=== PATIENT | male | born 1975 | race Caucasian/White ===

== ENCOUNTER 2024-04-27 13:19 | Emergency (ER) | payer OTHER, SELFPAY ==
[2024-04-27 13:21] VITALS: BP 105/74
--- NOTE | 2024-04-27 14:20 | ED.GENMED ---
History of Present Illness
<Iris Barroso PA-C - Last Filed: 04/27/24 17:58>
General
Chief Complaint: Abdominal Pain
Source: patient
Exam Limitations: none
Time Seen by Provider: 04/27/24 13:48
Nursing documentation reviewed up to this point in time: agreed with
History of Present Illness
History of Present Illness:
Patient is a 49-year-old male with history hypertension, type 2 diabetes presenting to the emergency department for evaluation of abdominal pain. Patient states symptoms initially started yesterday evening prior to bed and he noticed a dull pain in
the right side of his abdomen. This morning he woke up and said the pain was very severe and describes it as a constant 10/10 pain in his right mid abdomen with some radiation around to his back. Patient does report some nausea when the pain was
severe. No association with eating. However�patient does report that he has had no appetite today and has not eaten. Patient denies any fever, chills, vomiting, diarrhea, constipation.
Patient denies any history of abdominal surgeries.
Patient did take some Tylenol prior to coming emergency department states pain has decreased in intensity.
Past History
<Iris Barroso PA-C - Last Filed: 04/27/24 17:58>
Past History
ED Past Medical History: HTN, NIDDM and Other (Obesity)
ED Past Surgical History: None
Social History
Tobacco: Non-smoker
Alcohol: None
Personal:
Living: with family
Employment: Employed
Family History
Family History: Diabetes and Hypertension
Review of Systems
<Iris Barroso PA-C - Last Filed: 04/27/24 17:58>
Review of Systems
Allergies reviewed?: Yes
All Other Systems: ROS reviewed and negative except as documented in HPI and ROS
Phy Exam
<Iris Barroso PA-C - Last Filed: 04/27/24 17:58>
Physical Exam
Physical Exam:
Vitals: Patient's vital signs are stable. Afebrile
General: Patient is well appearing, no acute distress. Nontoxic-appearing
Skin: Warm and dry, no rashes or lesions
Head: Normocephalic, atraumatic
Eyes: Sclera nonicteric. EOMs intact. No nystagmus.
Throat: Protecting airway
Neck: Normal ROM, no cervical spine tenderness, no meningismus
Cardiac: Regular rate and rhythm, no murmurs.
Pulm: Normal respiratory effort, no wheezes, rales, rhonchi heard on exam.
Abdomen: Abdomen soft. Mild to moderate abdominal tenderness in right mid abdomen without any rebound tenderness or guarding. No CVA tenderness bilaterally
Extremities: No evidence of cyanosis or edema. Great distal pulses
Neuro: AAOx3. CN II-XII intact. No focal neurologic deficits.
Psychiatric: Normal affect.
Course
<Iris Barroso PA-C - Last Filed: 04/27/24 17:58>
Orders/Labs/Results
Orders:
Orders
04/27/24 14:17
0.9% Sodium Chloride 1000 ml [Nss] 1,000 ml IV BOLUS
Ketorolac [Toradol] 15 mg IV NOW STA
04/27/24 14:20
CT Abd/Pel (IV only)-[facility] only Urgent
Comment:
Reason For Exam: Right sided abdominal pain
04/27/24 14:26
Complete Blood Count/With Diff Urgent
Comprehensive Metabolic Panel Urgent
Lipase Urgent
04/27/24 14:27
Urinalysis Reflex To Culture Urgent
Date Specimen was Collected: 04/27/24
Time Specimen was Collected: 14:27
Urine Microscopic Reflex Cult Urgent
Urine Culture Urgent
PRAKASH Source: U
Specimen Description:
Date Specimen was Collected: 04/27/24
Time Specimen was Collected: 14:27
Abnormal Lab Results
04/27/24 04/27/24
14:26 14:27
WBC 11.3 H 10^3/uL
(4.8-10.8)
RBC 4.68 L 10^6/uL
(4.70-6.10)
Hct 38.2 L %
(39.0-52.0)
Abs Immat Gran (auto) 0.1 H 10^3/uL
(0-0.05)
Absolute Neuts (auto) 7.8 H 10^3/uL
(1.4-6.5)
Absolute Monos (auto) 0.8 H 10^3/uL
(0.1-0.6)
Glucose 118 H mg/dl
(70-99)
Urine Ketones 1+ A
(Negative)
Ur Occult Blood Reflex 4+ A
(Negative)
Urine Bilirubin 1+ A
(Negative)
Leukocyte Esterase Rfl Trace A
(Negative)
Urine RBC 80-90 A /HPF
(0-2)
Urine Bacteria (Reflex) Moderate A
(Negative)
04/27/24 14:26
04/27/24 14:26
Vital Signs
Initial and Last Documented VS:
Initial Vital Signs
Temp Pulse Resp BP Pulse Ox
98.6 F 73 20 105/74 99
04/27/24 13:21 04/27/24 13:21 04/27/24 13:21 04/27/24 13:21 04/27/24 13:21
Last Documented Vital Signs
Temp Pulse Resp BP Pulse Ox
97.9 F 65 20 151/81 95
04/27/24 17:49 04/27/24 17:49 04/27/24 17:49 04/27/24 17:49 04/27/24 17:49
<Melvin Fuentes, DO - Last Filed: 04/27/24 20:12>
Orders/Labs/Results
Orders:
Orders
04/27/24 14:17
0.9% Sodium Chloride 1000 ml [Nss] 1,000 ml IV BOLUS
Ketorolac [Toradol] 15 mg IV NOW STA
04/27/24 14:20
CT Abd/Pel (IV only)-[facility] only Urgent
Comment:
Reason For Exam: Right sided abdominal pain
04/27/24 14:26
Complete Blood Count/With Diff Urgent
Comprehensive Metabolic Panel Urgent
Lipase Urgent
04/27/24 14:27
Urinalysis Reflex To Culture Urgent
Date Specimen was Collected: 04/27/24
Time Specimen was Collected: 14:27
Urine Microscopic Reflex Cult Urgent
Urine Culture Urgent
PRAKASH Source: U
Specimen Description:
Date Specimen was Collected: 04/27/24
Time Specimen was Collected: 14:27
Abnormal Lab Results
04/27/24 04/27/24
14:26 14:27
WBC 11.3 H 10^3/uL
(4.8-10.8)
RBC 4.68 L 10^6/uL
(4.70-6.10)
Hct 38.2 L %
(39.0-52.0)
Abs Immat Gran (auto) 0.1 H 10^3/uL
(0-0.05)
Absolute Neuts (auto) 7.8 H 10^3/uL
(1.4-6.5)
Absolute Monos (auto) 0.8 H 10^3/uL
(0.1-0.6)
Glucose 118 H mg/dl
(70-99)
Urine Ketones 1+ A
(Negative)
Ur Occult Blood Reflex 4+ A
(Negative)
Urine Bilirubin 1+ A
(Negative)
Leukocyte Esterase Rfl Trace A
(Negative)
Urine RBC 80-90 A /HPF
(0-2)
Urine Bacteria (Reflex) Moderate A
(Negative)
04/27/24 14:26
04/27/24 14:26
Vital Signs
Initial and Last Documented VS:
Initial Vital Signs
Temp Pulse Resp BP Pulse Ox
98.6 F 73 20 105/74 99
04/27/24 13:21 04/27/24 13:21 04/27/24 13:21 04/27/24 13:21 04/27/24 13:21
Last Documented Vital Signs
Temp Pulse Resp BP Pulse Ox
97.9 F 65 20 151/81 95
04/27/24 17:49 04/27/24 17:49 04/27/24 17:49 04/27/24 17:49 04/27/24 17:49
<Iris Barroso PA-C - Last Filed: 04/27/24 17:58>
MDM/Problems Addressed
Differential Diagnosis Includes:
Not limited to: Constipation, cholelithiasis, cholecystitis, appendicitis, kidney stone, UTI
MDM/Problems Addressed:
49-year-old male presenting with acute onset right mid abdominal pain with radiation around to right back. Onset yesterday evening with acute worsening this morning. Pain somewhat improved following Tylenol prior to arrival. Denies any associated
fever, chills, vomiting, urinary symptoms, diarrhea, or constipation. Vital stable on arrival. Afebrile. Physical exam as above. Patient relatively well-appearing on initial evaluation. Abdomen is soft although he does have mild to moderate
tenderness in right mid abdomen. No CVA tenderness. No rashes. Great distal pulses. Heart regular rate and rhythm. Lungs clear. Labs were performed which showed very mild leukocytosis with a white count of 11.3. No other clinically
significant abnormalities. Will give Toradol, fluids. Patient declines any Zofran at this time. Will check CT abdomen/pelvis
Urinalysis does show many RBCs with clinical concern of potential kidney stone. Urine did show evidence of bacteria although no WBC or nitrate�low concern for infection. Culture will be sent. CT pending.
CT scan shows 3 mm right distal ureteral stone. Patients pain has been well-controlled in the emergency department with 1 dose of Toradol. Patient nontoxic-appearing. No evidence of renal insufficiency. Patient stable for discharge with pain
management, Flomax, return precautions. Patient will follow-up with urology. Patient sent home with urine strainer.
Chronic conditions affecting care:
N/A
Acute Exacerbation and/or Progression of Chronic Illness:
N/A
<Iris Barroso PA-C - Last Filed: 04/27/24 17:58>
*Radiology
Radiology exam reviewed: preliminary read by ED provider and radiology read reviewed
*Pulse Oximetry
Patient hypoxic: no
*EKG
Interpreted by ED Provider?: NA
*Video Machines Mechanic Interpretation
Rate: Video Machines Mechanic- N/A
*Critical Care Note
Total Time (30-74mins, 75-104mins- exclusive of procedures): Not Applicable
ED Attending Note
<Iris Barroso PA-C - Last Filed: 04/27/24 17:58>
-
Portions of this chart may have been created with voice recognition software.� Occasional wrong word or��sound alike� substitutions may have occurred due to the inherent limitations of voice recognition software.
<Melvin Fuentes DO - Last Filed: 04/27/24 20:12>
ED Attending Note
Patient seen and examined by attending physician: Yes
I performed the substantive portion of visit, reviewed & personally made and approve the management plan that is documented in note by myself or YANDEL.: Yes
ED Attending Note:
49-year-old male with right-sided pain. Is a diabetic. CT does show a stone. Feels much better on reevaluation patient eating in the room. Okay for discharge and outpatient follow-up
Discharge Plan
Departure
Patient Disposition: Home (Routine Discharge)
Date of Disposition: 04/27/24
Time of Disposition: 17:40
Patient with high blood pressure during this ER visit?: No
Discharge Problem:
Right distal ureteral calculus
Instructions: Kidney Stone, Adult ED
Prescriptions:
New
ondansetron 4 mg tablet,disintegrating
4 mg PO Q8H PRN (Reason: nausea and vomiting) Qty: 10 0RF
tamsulosin [Flomax] 0.4 mg capsule
0.4 mg PO DAILY Qty: 14 0RF
oxycodone 5 mg tablet
5 mg PO Q8H PRN (Reason: Pain) Qty: 5 0RF
No Action
metformin 1,000 MG tablet
1,000 mg PO BID
losartan 25 MG tablet
25 mg PO DAILY Qty: 30 0RF
Referrals:
Sanchez Vasquez MD [Active] - Call in 1-3 days for appt
Mirella Arango MD [Family Provider] -
Activity Restrictions/Additional Instructions:
RETURN TO THE EMERGENCY DEPARTMENT WITH ANY FEVERS, CHILLS, SEVERE ABDOMINAL PAIN, INTRACTABLE NAUSEA/VOMITING, WORSENING IN CURRENT SYMPTOMS, OR ANY OTHER CONCERNS
-A few prescriptions have been sent to her pharmacy. You should take the tamsulosin daily until you passed the stone. You can take Zofran every 8 hours as needed for severe nausea. You should take 600 mg of ibuprofen every 8 hours as needed for
pain management. For severe pain�you can take oxycodone. This will cause drowsiness and you should not take prior to driving.
-You should strain your urine until the stone is passed.
-Follow-up with urology for further evaluation/management. It is important to monitor your symptoms closely and return with any signs of infection.
Interventions
Interventions:
*Risk Screen - Suicide Last Done: 04/27/24 13:21
*General Assessment Last Done: 04/27/24 13:21
*Neglect/Abuse Screening Last Done: 04/27/24 13:21
*ED COVID-19 Vaccine History Last Done: 04/27/24 14:39
*Nursing Disposition Last Done: 04/27/24 17:52
EM-Cwodhb-Etgrtsexhu Assessment Last Done: 04/27/24 14:39
Discharge Date and Time
Discharge Date/Time: 04/27/24 17:55
Print Language: GREENLANDIC
[2024-04-27] MEDS: TORADOL 15 MG IV (14:27)
[2024-04-27] MEDS: NSS 1000 IV (14:36)
[2024-04-27 14:40] LABS: Urine Albumin Trace (Neg - Trace); Urine Bilirubin 1+ (Negative); Urine Character Clear (Clear); Urine Color Yellow; Urine Glucose Negative (Negative); Urine Ketone 1+ (Negative); Urine Leukocyte Trace (Negative); Urine Nitrite Negative (Negative); Urine Occult Blood 4+ (Negative); Urine Specific Gravity 1.015 (<1.030); Urine Urobilinogen 1+ (Neg - 1+)
[2024-04-27 14:40] LABS: % Basophils 0.4 % (0-2); % Eosinophils 1.6 % (0-6); % Immature Granulocytes 0.5 % (0-0.5); % Lymphocytes 21.3 % (20.5-51.1); % Monocytes 7.3 % (1.7-9.3); % Neutrophils 68.9 % (42.2-75.2); Absolute Eosinophils 0.2 10^3/uL (0-0.7); Absolute Immature Granulocytes 0.1 10^3/uL (0-0.05); Absolute Lymphocytes 2.4 10^3/uL (1.2-3.4); Absolute Monocytes 0.8 10^3/uL (0.1-0.6); Absolute Neutrophils 7.8 10^3/uL (1.4-6.5); Hematocrit 38.2 % (39.0-52.0); Hemoglobin 13.2 g/dL (13.0-18.0); Mean Corp Hgb Conc. 34.6 g/dL (33.0-37.0); Mean Corpuscular Hgb 28.2 pg (27.0-31.0); Mean Corpuscular Volume 81.6 fL (80.0-94.0); Nucleated Red Blood Cells % 0 % (-); Platelet Count 229 10^3/uL (130-400); Red Blood Cell Count 4.68 10^6/uL (4.70-6.10); Red Cell Dist. Width 14.1 % (11.5-14.5); White Blood Cell Count 11.3 10^3/uL (4.8-10.8)
[2024-04-27 15:00] LABS: ALT (SGPT) 19 U/L (0-50); AST (SGOT) 20 U/L (17-59); Albumin 4.4 g/dl (3.5-5.0); Alkaline Phosphatase 66 U/L (38-126); Blood Urea Nitrogen 14 mg/dl (9-20); Calcium 9.4 mg/dl (8.4-10.2); Carbon Dioxide 28 mmol/L (22-30); Chloride 102 mmol/L (98-107); Glucose 118 mg/dl (70-99); Lipase 40 U/L (23-300); Potassium 4.1 mmol/L (3.5-5.1); Sodium 139 mmol/L (135-145); Total Bilirubin 0.9 mg/dl (0.2-1.3); Total Protein 7.4 g/dl (6.3-8.2); eGFR > 60.00
[2024-04-27 15:08] LABS: Urine Mucus Many; Urine Squamous Cell 0-2 /LPF (Few)
[2024-04-27 15:09] LABS: Urine Bacteria Moderate (Negative); Urine Red Blood Cell 80-90 /HPF (0-2); Urine White Cell 0-2 /HPF (0-5)
[2024-04-27 17:49] VITALS: BP 151/81
== END 2024-04-27 17:55 | disposition home or self-care (01) ==
LOC: EMR 13:19
PROVIDERS: Physician Assistant; EMERGENCY PHYSICIAN Emergency Medicine; FAMILY PHYSICIAN Family Medicine
DX: R10.9 Unspecified abdominal pain (principal); I10 Essential (primary) hypertension; E11.9 Type 2 diabetes mellitus without complications; E66.9 Obesity, unspecified; N20.1 Calculus of ureter; Z82.49 Family history of ischemic heart disease and other diseases of the circulatory system; Z83.3 Family history of diabetes mellitus
CPT/HCPCS: 99284; 74177; 80053; 81003; 81015; 83690; 85025; 87086; Q9967

== ENCOUNTER 2024-05-20 09:11 | Emergency (ER) | payer OTHER, SELFPAY ==
[2024-05-20 09:21] VITALS: BP 166/92
--- NOTE | 2024-05-20 09:45 | ED.GENMED ---
History of Present Illness
General
Chief Complaint: Abdominal Symptoms
Source: patient and records
Time Seen by Provider: 05/20/24 09:31
History of Present Illness
History of Present Illness:
49yoM with a history of hypertension, hyperlipidemia, type 2 diabetes, and morbid obesity presenting for evaluation of abdominal pain. Patient was seen in the ED on 04/27/2024 for right-sided abdominal pain and he was diagnosed with a 3 mm distal
ureteral stone. He was discharged with expectant management and referred to urology. Patient never followed up with urology because the office reportedly never called him back. He does not believe he ever passed the stone. Patient was pain-free
for several weeks and his pain recurred 2 days ago. He reports pain in the right flank and right abdomen. He also was having nausea but denies vomiting. He has been taking ibuprofen for his symptoms. No fevers or urinary symptoms.
Past History
Past History
ED Past Medical History: HTN, NIDDM and Other (Obesity)
ED Past Surgical History: None
Social History
Tobacco: Non-smoker
Alcohol: None
Personal:
Living: with family
Employment: Employed
Family History
Family History: Diabetes and Hypertension
Phy Exam
General Physical Exam
General Presentation: well appearing and no apparent distress
General age: appears stated age
General Skin: warm and dry
General Habitus: normal
General Mental: alert
Cardiovascular Exam
Cardiovascular Exam: regular rate/rhythm and no murmur
Pulmonary Exam
Pulmonary Exam: lungs clear, no respiratory distress and no crackles
Gastrointestinal Exam
Gastrointestinal Exam: soft, non distended and tender (+Mild tenderness to RUQ. Negative Bryan's sign. No CVA tenderness. No guarding or rigidity. )
Palpation: right upper quadrant: Mild tenderness
Skin Exam
Skin Exam: normal color and warm/dry
Course
Orders/Labs/Results
Orders:
Orders
05/20/24 09:41
CT Abd/pel Without Iv Or Oral Urgent
Comment:
Reason For Exam: R sided abd pain, kidney stone last month
0.9% Sodium Chloride 1000 ml [Nss] 1,000 ml IV BOLUS
HYDROmorphone [Dilaudid] 0.5 mg IV NOW STA
Ketorolac [Toradol] 15 mg IV NOW STA
Ondansetron Injectable [Zofran] 4 mg IV NOW STA
05/20/24 09:44
Complete Blood Count/With Diff Urgent
Comprehensive Metabolic Panel Urgent
Urinalysis Reflex To Culture Urgent
Date Specimen was Collected: 05/20/24
Time Specimen was Collected: :28
Urine Microscopic Reflex Cult Urgent
Abnormal Lab Results
05/20/24
09:44
WBC 11.0 H 10^3/uL
(4.8-10.8)
RBC 4.51 L 10^6/uL
(4.70-6.10)
Hct 37.5 L %
(39.0-52.0)
Abs Immat Gran (auto) 0.1 H 10^3/uL
(0-0.05)
Absolute Neuts (auto) 7.5 H 10^3/uL
(1.4-6.5)
Absolute Monos (auto) 0.9 H 10^3/uL
(0.1-0.6)
Lymphocytes % 19.2 L %
(20.5-51.1)
Glucose 152 H mg/dl
(70-99)
Leukocyte Esterase Rfl Trace A
(Negative)
05/20/24 09:44
05/20/24 09:44
Vital Signs
Initial and Last Documented VS:
Initial Vital Signs
Temp Pulse Resp BP Pulse Ox
98.1 F 69 17 166/92 97
05/20/24 09:21 05/20/24 09:21 05/20/24 09:21 05/20/24 09:21 05/20/24 09:21
Last Documented Vital Signs
Temp Pulse Resp BP Pulse Ox
98.1 F 62 16 152/95 98
05/20/24 09:21 05/20/24 12:36 05/20/24 12:36 05/20/24 12:36 05/20/24 12:36
MDM/Problems Addressed
Differential Diagnosis Includes:
49yoM here with R flank and abdominal pain x 2 days. Seen in the ED last month for a 3mm distal ureteral stone and he does not believe he ever passed the stone. No fevers or urinary symptoms. He is well appearing in no distress. There is RUQ
tenderness on abdominal exam without signs of peritonitis.
*Critical Care Note
Total Time (30-74mins, 75-104mins- exclusive of procedures): Not Applicable
Update Note
Update Note:
CT again shows a 3mm stone just distal to prior location. Renal function is stable. No signs of infection on urinalysis. Pain is controlled on reassessment. Case was discussed with urologist, Dr. Perez, who states patient may be discharged with
outpatient f/u. Supportive care discussed including hydration and urine straining. Flomax represcribed. Script for oxycodone also provided for breakthrough pain. He was advised to call tomorrow to schedule a f/u with urology. Strict ED return
precautions discussed. He was discharged in stable condition.
ED Attending Note
-
Portions of this chart may have been created with voice recognition software.� Occasional wrong word or��sound alike� substitutions may have occurred due to the inherent limitations of voice recognition software.
Discharge Plan
Departure
Patient Disposition: Home (Routine Discharge)
Date of Disposition: 05/20/24
Time of Disposition: 12:33
Patient with high blood pressure during this ER visit?: Yes
Discharge Problem:
Right distal ureteral calculus
Instructions: How to Strain Your Urine, Kidney Stone, Adult ED
Prescriptions:
New
tamsulosin [Flomax] 0.4 mg capsule
0.4 mg PO HS Qty: 10 0RF
oxycodone 5 mg tablet
5 mg PO Q6H PRN (Reason: Pain) Qty: 12 0RF
No Action
metformin 1,000 MG tablet
1,000 mg PO BID
losartan 25 MG tablet
25 mg PO DAILY Qty: 30 0RF
ondansetron 4 mg tablet,disintegrating
4 mg PO Q8H PRN (Reason: nausea and vomiting) Qty: 10 0RF
tamsulosin [Flomax] 0.4 mg capsule
0.4 mg PO DAILY Qty: 14 0RF
oxycodone 5 mg tablet
5 mg PO Q8H PRN (Reason: Pain) Qty: 5 0RF
Referrals:
Mirella Arango MD [Family Provider] -
Acosta Perez MD [Active] -
Activity Restrictions/Additional Instructions:
Drink plenty of fluids. Take Flomax and strain your urine until stone has passed.
Take Tylenol 650mg and ibuprofen 600mg every 6 hours as needed for pain. Take oxycodone only as needed for severe breakthrough pain.
Please call tomorrow to schedule a follow-up with urology.
Return to the ER with any worsening symptoms, uncontrolled pain, fevers.
Interventions
Interventions:
*General Assessment Last Done: 05/20/24 12:43
*Nursing Disposition Last Done: 05/20/24 12:43
AE-Qcplyn-Rjufwbbpag Assessment Last Done: 05/20/24 09:46
Discharge Date and Time
Discharge Date/Time: 05/20/24 12:43
Print Language: MAORI
[2024-05-20 09:46] VITALS: BMI 49.2
[2024-05-20] MEDS: TORADOL 15 MG IV (09:53)
[2024-05-20] MEDS: NSS 1000 IV (09:53)
[2024-05-20] MEDS: DILAUDID 0.5 MG IV (09:53)
[2024-05-20 09:54] LABS: % Basophils 0.3 % (0-2); % Eosinophils 3.8 % (0-6); % Immature Granulocytes 0.5 % (0-0.5); % Lymphocytes 19.2 % (20.5-51.1); % Monocytes 8.4 % (1.7-9.3); % Neutrophils 67.8 % (42.2-75.2); Absolute Eosinophils 0.4 10^3/uL (0-0.7); Absolute Immature Granulocytes 0.1 10^3/uL (0-0.05); Absolute Lymphocytes 2.1 10^3/uL (1.2-3.4); Absolute Monocytes 0.9 10^3/uL (0.1-0.6); Absolute Neutrophils 7.5 10^3/uL (1.4-6.5); Hematocrit 37.5 % (39.0-52.0); Mean Corp Hgb Conc. 34.7 g/dL (33.0-37.0); Mean Corpuscular Hgb 28.8 pg (27.0-31.0); Mean Corpuscular Volume 83.1 fL (80.0-94.0); Mean Platelet Volume 9.9 fL (7.4-10.4); Nucleated Red Blood Cells % 0 % (-); Platelet Count 204 10^3/uL (130-400); Red Blood Cell Count 4.51 10^6/uL (4.70-6.10); Red Cell Dist. Width 13.7 % (11.5-14.5)
[2024-05-20] MEDS: ZOFRAN 4 MG IV (09:54)
[2024-05-20 10:02] LABS: Urine Albumin Negative (Neg - Trace); Urine Bilirubin Negative (Negative); Urine Character Clear (Clear); Urine Color Yellow; Urine Glucose Negative (Negative); Urine Ketone Negative (Negative); Urine Leukocyte Trace (Negative); Urine Nitrite Negative (Negative); Urine Occult Blood Negative (Negative); Urine Urobilinogen Negative (Neg - 1+)
[2024-05-20 10:07] LABS: ALT (SGPT) 15 U/L (0-50); AST (SGOT) 17 U/L (17-59); Albumin 4.1 g/dl (3.5-5.0); Alkaline Phosphatase 75 U/L (38-126); Blood Urea Nitrogen 17 mg/dl (9-20); Carbon Dioxide 26 mmol/L (22-30); Chloride 104 mmol/L (98-107); Estimated Creatinine Clearance > 125 ml/min; Glucose 152 mg/dl (70-99); Potassium 4.4 mmol/L (3.5-5.1); Sodium 137 mmol/L (135-145); Total Bilirubin 0.7 mg/dl (0.2-1.3); Total Protein 6.9 g/dl (6.3-8.2); eGFR > 60.00
[2024-05-20 10:36] LABS: Urine Red Blood Cell 0-2 /HPF (0-2)
[2024-05-20 10:37] LABS: Urine White Cell None Seen /HPF (0-5)
[2024-05-20 12:36] VITALS: BP 152/95
--- NOTE | 2024-05-20 12:43 | EDRN ---
Strainer, specimen cup to go.
== END 2024-05-20 12:43 | disposition home or self-care (01) ==
LOC: EMR 09:11
PROVIDERS: Emergency Medicine; EMERGENCY PHYSICIAN Emergency Medicine; FAMILY PHYSICIAN Family Medicine
DX: N20.1 Calculus of ureter (principal); I10 Essential (primary) hypertension; E78.00 Pure hypercholesterolemia, unspecified; E11.9 Type 2 diabetes mellitus without complications; E66.01 Morbid (severe) obesity due to excess calories; Z82.49 Family history of ischemic heart disease and other diseases of the circulatory system; Z83.3 Family history of diabetes mellitus; Z87.442 Personal history of urinary calculi
CPT/HCPCS: 99284; 96374; 96375; 96361; 74176; 80053; 81003; 81015; 85025

== ENCOUNTER 2024-07-19 17:49 | Emergency (ER) | payer OTHER, SELFPAY ==
[2024-07-19 17:50] VITALS: BP 176/105
[2024-07-19 20:09] VITALS: BP 179/100
--- NOTE | 2024-07-19 20:20 | ED.GENMED ---
History of Present Illness
General
Chief Complaint: Back Pain
Time Seen by Provider: 07/19/24 19:27
History of Present Illness
History of Present Illness:
49-year-old male presents to the emergency department evaluation right-sided neck pain radiating down bilateral lower extremities after a fall 10 days ago. Pain was minimal after the fall but over the past several days the pain is worsened. He is
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 Taking Tylenol without relief. Denies any loss of bladder or bowel function. He also notes mild left hand tingling as well
Past History
Past History
ED Past Medical History: HTN, NIDDM and Other (Obesity)
ED Past Surgical History: None
Social History
Tobacco: Non-smoker
Alcohol: None
Personal:
Living: with family
Employment: Employed
Family History
Family History: Diabetes and Hypertension
Review of Systems
Review of Systems
Allergies reviewed?: Yes
All Other Systems: ROS reviewed and negative except as documented in HPI and ROS
Phy Exam
Physical Exam
Physical Exam:
GEN: Well appearing, NAD, WDWN
HEENT: Oral mucosa moist, no scleral icterus
Cardiac: Regular rate
Lung: No respiratory distress, no tachypnea
MSK: No gross deformity or injuries. No midline lumbar spine bony tenderness. Tenderness elicited to the superior right gluteal region. Bilateral lower extremity strength is 5 out of 5 in all emmanuel, patellar reflexes 2+ bilaterally
Skin: Good color, no pallor or jaundice, no rashes
Neuro: AO x3, moves all extremities freely
Psych: Calm, cooperative
Course
Orders/Labs/Results
Orders:
Orders
07/19/24 20:20
Cyclobenzaprine HCl [Flexeril] 10 mg PO NOW STA
Ketorolac [Toradol] 30 mg IM NOW STA
Vital Signs
Initial and Last Documented VS:
Initial Vital Signs
Temp Pulse Resp BP Pulse Ox
98.1 F 76 20 176/105 97
07/19/24 17:50 07/19/24 17:50 07/19/24 17:50 07/19/24 17:50 07/19/24 17:50
Last Documented Vital Signs
Temp Pulse Resp BP Pulse Ox
98.1 F 76 20 179/100 97
07/19/24 17:50 07/19/24 17:50 07/19/24 17:50 07/19/24 20:09 07/19/24 17:50
MDM/Problems Addressed
MDM/Problems Addressed:
He has no midline bony tenderness thus there is no indication for imaging. Discussed supportive care with NSAIDs and muscle relaxants. Recommend primary care follow-up. Discussed his elevated blood pressure despite his antihypertensive use and
recommend close primary care follow-up for this
*Critical Care Note
Total Time (30-74mins, 75-104mins- exclusive of procedures): Not Applicable
ED Attending Note
-
Portions of this chart may have been created with voice recognition software.� Occasional wrong word or��sound alike� substitutions may have occurred due to the inherent limitations of voice recognition software.
Discharge Plan
Departure
Patient Disposition: Home (Routine Discharge)
Date of Disposition: 07/19/24
Time of Disposition: 20:20
Patient with high blood pressure during this ER visit?: Yes
Discharge Problem:
Acute lumbar myofascial strain
Instructions: Low Back Pain (DC)
Prescriptions:
New
diclofenac sodium 75 mg tablet,delayed release (DR/EC)
75 mg PO BID Qty: 20 0RF
methocarbamol 750 mg tablet
750 - 1,500 mg PO Q8H Qty: 20 0RF
No Action
metformin 1,000 MG tablet
1,000 mg PO BID
losartan 25 MG tablet
25 mg PO DAILY Qty: 30 0RF
ondansetron 4 mg tablet,disintegrating
4 mg PO Q8H PRN (Reason: nausea and vomiting) Qty: 10 0RF
tamsulosin [Flomax] 0.4 mg capsule
0.4 mg PO DAILY Qty: 14 0RF
oxycodone 5 mg tablet
5 mg PO Q8H PRN (Reason: Pain) Qty: 5 0RF
tamsulosin [Flomax] 0.4 mg capsule
0.4 mg PO HS Qty: 10 0RF
oxycodone 5 mg tablet
5 mg PO Q6H PRN (Reason: Pain) Qty: 12 0RF
Referrals:
Mirella Arango MD [Family Provider] -
Activity Restrictions/Additional Instructions:
Please have your blood pressure followed up by your primary care physician as it was quite elevated despite your use of blood pressure medications
Interventions
Interventions:
*Risk Screen - Suicide Last Done: 07/19/24 20:09
*General Assessment Last Done: 07/19/24 20:30
*Neglect/Abuse Screening Last Done: 07/19/24 20:09
ED- Fall Risk Assessment Last Done: 07/19/24 20:30
*ED COVID-19 Vaccine History Last Done: 07/19/24 20:09
*Nursing Disposition Last Done: 07/19/24 20:30
ED-Musculoskeletal Assessment Last Done: 07/19/24 20:09
Discharge Date and Time
Discharge Date/Time: 07/19/24 20:31
Print Language: SYRIAC
[2024-07-19] MEDS: FLEXERIL 10 MG PO (20:24)
[2024-07-19] MEDS: TORADOL 30 MG IM (20:24)
== END 2024-07-19 20:31 | disposition home or self-care (01) ==
LOC: EMR 17:49
PROVIDERS: EMERGENCY PHYSICIAN Emergency Medicine; FAMILY PHYSICIAN Family Medicine
DX: S39.012A Strain of muscle, fascia and tendon of lower back, initial encounter (principal); W19.XXXA Unspecified fall, initial encounter; I10 Essential (primary) hypertension
CPT/HCPCS: 99284; 96372

== ENCOUNTER 2024-08-01 20:32 | Emergency (ER) | payer OTHER, SELFPAY ==
[2024-08-01 20:33] VITALS: BP 187/97
--- NOTE | 2024-08-01 22:19 | ED.GENMED ---
History of Present Illness
General
Chief Complaint: Musculo-Skeletal Complaint
Source: patient
Time Seen by Provider: 08/01/24 21:43
History of Present Illness
History of Present Illness:
49-year-old male presents to the emergency room complaining of pain in his neck which radiates up to the back of his head as well as down his left arm. He has a sense of paresthesias in the left arm. Fortunately patient is right-hand dominant.
Symptoms have been present for the past 3 days. Patient had similar pain in his neck several years ago which improved with epidural injections. He was told he had osteoarthritis. Patient denies any fever or chills. He denies any weakness in his
arms. Patient states he had a fall in the driveway about 3 weeks ago at which point he felt increased back pain but no neck injury. He does not take any oral anticoagulants. Does have diabetes but describes it is well-controlled.
Past History
Past History
ED Past Medical History: HTN, NIDDM and Other (Obesity)
ED Past Surgical History: None
Social History
Tobacco: Non-smoker
Alcohol: None
Personal:
Living: with family
Employment: Employed
Family History
Family History: Diabetes and Hypertension
Phy Exam
Physical Exam
Physical Exam:
General: Awake, Alert, Oriented X3. No acute distress.
Vitals: unremarkable
Head: Atraumatic
Eyes: Pupils equal, EOMI
Throat: Airway intact, no exudates,
Neck: Trachea midline, some paraspinal tenderness of the upper cervical spine bilaterally
Lungs: Clear and equal b/l
Heart: Regular rate, no murmurs
Abd: Soft, Nontender, No pulsatile mass
Neuro: Cranial nerves intact, muscle strength equal bilaterally
Skin: Warm, dry, no rash
Extremities: pulses equal b/l, no edema
Course
Orders/Labs/Results
Orders:
Orders
10/02/24 22:18
Ketorolac [Toradol] 30 mg IM NOW STA
Prednisone [Deltasone] 60 mg PO NOW STA
Cervical Spine 4 or 5 Vw [CR Cervical Spine 4 Or 5 Vw] Urgent
Comment:
Reason For Exam: neck pain, left arm numbness
Vital Signs
Initial and Last Documented VS:
Initial Vital Signs
Temp Pulse Resp BP Pulse Ox
99.7 F 77 18 187/97 99
08/01/24 20:33 08/01/24 20:33 08/01/24 20:33 08/01/24 20:33 08/01/24 20:33
Last Documented Vital Signs
Temp Pulse Resp BP Pulse Ox
99.7 F 77 18 187/97 99
08/01/24 20:33 08/01/24 20:33 08/01/24 20:33 08/01/24 20:33 08/01/24 20:33
MDM/Problems Addressed
Differential Diagnosis Includes:
Cervical strain, cervical disc herniation, muscle spasm
MDM/Problems Addressed:
Imaging shows no acute fracture or compression fracture. Radiologist does note degenerative findings. Patient's symptoms consistent with cervical radiculopathy. Will continue Tylenol and NSAIDs and add prednisone. Patient feels better after IM
Toradol.
*Radiology
Radiology exam reviewed: radiology read reviewed
*Pulse Oximetry
Patient hypoxic: no
*Critical Care Note
Total Time (30-74mins, 75-104mins- exclusive of procedures): Not Applicable
ED Attending Note
-
Portions of this chart may have been created with voice recognition software.� Occasional wrong word or��sound alike� substitutions may have occurred due to the inherent limitations of voice recognition software.
Discharge Plan
Departure
Patient Disposition: Home (Routine Discharge)
Date of Disposition: 08/01/24
Time of Disposition: 23:46
Patient with high blood pressure during this ER visit?: Yes
Condition: Good
Discharge Problem:
Acute cervical myofascial strain, Radicular pain of left upper extremity
Instructions: Radiculopathy of the neck and back (including sciatica), BLOOD PRESSURE
Prescriptions:
New
prednisone 20 mg tablet
40 mg PO DAILY Qty: 8 0RF
No Action
metformin 1,000 MG tablet
1,000 mg PO BID
losartan 25 MG tablet
25 mg PO DAILY Qty: 30 0RF
ondansetron 4 mg tablet,disintegrating
4 mg PO Q8H PRN (Reason: nausea and vomiting) Qty: 10 0RF
tamsulosin [Flomax] 0.4 mg capsule
0.4 mg PO DAILY Qty: 14 0RF
oxycodone 5 mg tablet
5 mg PO Q8H PRN (Reason: Pain) Qty: 5 0RF
tamsulosin [Flomax] 0.4 mg capsule
0.4 mg PO HS Qty: 10 0RF
oxycodone 5 mg tablet
5 mg PO Q6H PRN (Reason: Pain) Qty: 12 0RF
diclofenac sodium 75 mg tablet,delayed release (DR/EC)
75 mg PO BID Qty: 20 0RF
methocarbamol 750 mg tablet
750 - 1,500 mg PO Q8H Qty: 20 0RF
Referrals:
Omid Bowen MD [Active] -
Mirella Arango MD [Family Provider] -
Activity Restrictions/Additional Instructions:
Should follow-up with your primary care doctor as well as orthopedics. I have given you contact information for [facility]. I have prescribed a short course of steroids to help with your neck pain and arm pain. This may cause your
sugar to be a bit higher so do not be surprised by that. You can also take Tylenol and ibuprofen every 6 hours for pain.
Interventions
Interventions:
*Risk Screen - Suicide Last Done: 08/01/24 20:33
*General Assessment Last Done: 08/01/24 20:33
*Neglect/Abuse Screening Last Done: 08/01/24 20:33
ED- Fall Risk Assessment Last Done: 08/01/24 22:35
*Nursing Disposition Last Done: 08/02/24 00:09
ED-Musculoskeletal Assessment Last Done: 08/01/24 22:35
Discharge Date and Time
Discharge Date/Time: 08/02/24 00:10
Print Language: DIVEHI
[2024-08-01] MEDS: DELTASONE 60 MG PO (22:42)
[2024-08-01] MEDS: TORADOL 30 MG IM (22:42)
== END 2024-08-02 00:10 | disposition home or self-care (01) ==
LOC: EMR 20:32
PROVIDERS: EMERGENCY PHYSICIAN Emergency Medicine; FAMILY PHYSICIAN Family Medicine
DX: S16.1XXA Strain of muscle, fascia and tendon at neck level, initial encounter (principal); W19.XXXA Unspecified fall, initial encounter; M54.10 Radiculopathy, site unspecified; I10 Essential (primary) hypertension
CPT/HCPCS: 99284; 96372; 72050